=== PATIENT | female | born 1980 | race Asian ===

== ENCOUNTER 2022-10-23 11:14 | Emergency (ER) | payer MEDICAID ==
[~2022-10-23] VITALS: Ht 152.4 cm; Wt 52.3 kg
[2022-10-23] MEDS ORDERED: IBUPROFEN 200 MG TABLET PO ONE (12:30)
[2022-10-23 13:33] VITALS: BP 138/79
[2022-10-23] MEDS ORDERED: BACL10TA PO (13:44)
[2022-10-23] MEDS ORDERED: IBUP-1554 PO (13:44)
== END 2022-10-23 14:07 | disposition home or self-care (01) ==
LOC: EMS 11:16
DX: S13.4XXA Sprain of ligaments of cervical spine, initial encounter (principal); V49.9XXA Car occupant (driver) (passenger) injured in unspecified traffic accident, initial encounter; Y93.89 Activity, other specified; Y92.89 Other specified places as the place of occurrence of the external cause; Y99.8 Other external cause status
CPT/HCPCS: 72040; 72070; 72100; 99284; Z7502; Z7610

== ENCOUNTER 2022-11-18 10:10 | Emergency (ER) | payer MEDICAID ==
[~2022-11-18] VITALS: Ht 154.9 cm; Wt 54.5 kg
[~2022-11-18 10:10] MED LIST: BACL10TA PO; IBUP-1554 PO
[2022-11-18 10:26] LABS: COVID AG,FIA SOURCE NASAL SWAB
[2022-11-18 10:43] VITALS: BP 124/84
[2022-11-18 10:56] LABS: INFLUENZA TYPE A NEGATIVE FOR TYPE A (NEGATIVE); INFLUENZA TYPE B NEGATIVE FOR TYPE B (NEGATIVE)
[2022-11-18 11:20] LABS: RAPID GROUP A STREP NEGATIVE (NEGATIVE)
== END 2022-11-18 13:00 | disposition home or self-care (01) ==
LOC: EMS 10:11
DX: J06.9 Acute upper respiratory infection, unspecified (principal); Z20.822 Contact with and (suspected) exposure to COVID-19
CPT/HCPCS: 87430; 87804; 99283

== ENCOUNTER 2023-09-30 14:06 | Emergency (ER) | payer MEDICAID, OTHER ==
[~2023-09-30] VITALS: Ht 152.4 cm; Wt 45.5 kg
[2023-09-30 14:14] VITALS: BP 142/75; PULSE 64; RESP 18; TEMP 98
[2023-09-30 14:20] LABS: COVID AG,FIA SOURCE NASAL SWAB
[2023-09-30 14:34] LABS: RAPID GROUP A STREP NEGATIVE (NEGATIVE)
[2023-09-30 14:42] LABS: SARS-COV2 (COVID) ANTIGEN,FIA Negative (Negative)
[2023-09-30 14:42] LABS: INFLUENZA TYPE A NEGATIVE FOR TYPE A (NEGATIVE); INFLUENZA TYPE B NEGATIVE FOR TYPE B (NEGATIVE)
[2023-09-30] MEDS ORDERED: AMOX500T2 PO (15:22)
[2023-09-30] MEDS ORDERED: DIPH-1243 PO (15:22)
[2023-09-30] MEDS ORDERED: NAPH15DR75 OD (15:22)
== END 2023-09-30 15:36 | disposition home or self-care (01) ==
LOC: EMS 14:06
DX: J06.9 Acute upper respiratory infection, unspecified (principal); H10.11 Acute atopic conjunctivitis, right eye; J02.9 Acute pharyngitis, unspecified; Z20.822 Contact with and (suspected) exposure to COVID-19
CPT/HCPCS: 87430; 87804; 99283